=== PATIENT | female | born 1985 | race Caucasian/White ===

== ENCOUNTER 2017-10-25 02:15 | Inpatient (IN) | payer MEDICAID, SELFPAY ==
[2017-10-25 03:05] VITALS: BMI 43.1
[2017-10-25 03:39] LABS: Hematocrit 34.3 % (37-47); Hemoglobin 11.4 g/dl (12.0-15.0); Mean Corp Hgb Conc 33.2 g/gl (32-36); Mean Corpuscular Hgb 32.4 pg (27.0-32.0); Mean Corpuscular Volume 97.4 fL (81-99); Mean Platelet Vol. 10.1 fl (6.2-12.0); Platelet Count 253 K/mm3 (150-450); RBC Distribution Width CV 13.1 % (11.6-14.6); RBC Distribution Width SD 44.5 fl (35.1-43.9); Red Blood Count 3.52 M/mm3 (4.2-5.4); White Blood Count 8.7 K/mm3 (4.4-11.0)
[2017-10-25] MEDS: Lactated Ringers 1,000 ML 50 ML IV ×2 (03:41→04:17)
[2017-10-25 03:47] LABS: Scan Indicated on CBC? Y/N NO
--- NOTE | 2017-10-25 03:47 | PCM.DCVAG ---
Discharge Diet: No Restrictions Discharge Activity: May not drive while taking narcotic pain medications., May Shower, May Take a Tub Bath May resume sexual activity in: 4-6 weeks Additional Activity Instructions:: Nothing in the vagina for 4-6 weeks. You may return to work/school in 6 weeks. Call your doctor if you observe: Fever of 101 or Higher, Inability to urinate, Inability to have a bowel movement, Using more than one pad per hour Additional Instructions: If you experience any of the following, contact your healthcare provider. Bleeding that soaks a pad every hour for 2 hours Unrelieved incision or abdominal pain Swelling, redness, discharge or bleeding from your incision or episiotomy site Your incision begins to separate Problems urinating (including inability to urinate or burning while urinating). Visual changes Severe headache Flu-like symptoms Pain or redness in one of both of your breasts Pain, warmth, tenderness or swelling in your legs, especially the calf area Frequent nausea and vomiting Symptoms of depression or anxiety If you experience any of the following, call 911 or go to the nearest Emergency Room. Chest pain Problems breathing Seizure activity Partial or complete paralysis of a body part, slurred speech, weakness or drooping of the face, or a sudden inability to walk or hold your balance Allergies/Adverse Reactions: Allergies No Known Allergies Allergy (Verified 10/25/17 03:06) Medications to take at Discharge Prenatabs FA 1 tab PO DAILY 10/04/13 Please Follow Up With: Shireen Han MD - [phone] When: Call to make an appointment with your doctor in 6 weeks. Primary Care Physician: Care Physician,No Primary [Primary Care Provider] -
--- NOTE | 2017-10-25 04:12 | DCINST_ITS ---
Discharge Diet: No Restrictions Discharge Activity: May not drive while taking narcotic pain medications., May Shower, May Take a Tub Bath May resume sexual activity in: 4-6 weeks Additional Activity Instructions:: Nothing in the vagina for 4-6 weeks. You may return to work/school in 6 weeks. Call your doctor if you observe: Fever of 101 or Higher, Inability to urinate, Inability to have a bowel movement, Using more than one pad per hour Additional Instructions: If you experience any of the following, contact your healthcare provider. * Bleeding that soaks a pad every hour for 2 hours * Unrelieved incision or abdominal pain * Swelling, redness, discharge or bleeding from your incision or episiotomy site * Your incision begins to separate * Problems urinating (including inability to urinate or burning while urinating) . * Visual changes * Severe headache * Flu-like symptoms * Pain or redness in one of both of your breasts * Pain, warmth, tenderness or swelling in your legs, especially the calf area * Frequent nausea and vomiting * Symptoms of depression or anxiety If you experience any of the following, call 911 or go to the nearest Emergency Room. * Chest pain * Problems breathing * Seizure activity * Partial or complete paralysis of a body part, slurred speech, weakness or drooping of the face, or a sudden inability to walk or hold your balance Allergies/Adverse Reactions: Allergies No Known Allergies Allergy (Verified 10/25/17 03:06) Medications to take at Discharge Prenatabs FA 1 tab PO DAILY 10/04/13 Please Follow Up With: Shireen Han MD - [phone] When: Call to make an appointment with your doctor in 6 weeks. Primary Care Physician: Care Physician,No Primary [Primary Care Provider] -
[2017-10-25] MEDS: Ondansetron 4 MG/2 ML Vial IV (04:42)
[2017-10-25] MEDS: Oxytocin 30 units/NS 500 ml 30 UNITS/500 ML IV.SOLN 334 UNITS IV (07:00)
--- NOTE | 2017-10-25 07:07 | PCM.OB.VAG ---
Vaginal Delivery Maternal Presentation: Active Labor Amniotic Membrane Rupture Type: Artificial Amniotic Fluid Description: Clear Final JESSICA: 10/23/17 Final JESSICA Source: US <20 weeks Gestational age: 40 Weeks and 2 Days Date of Procedure: 10/25/17 Pre-Operative Diagnosis: Intrauterine Post-Operative Diagnosis: Intrauterine Surgery/ Procedure Performed: Spontaneous Vaginal Delivery Type of Anesthesia: Epidural Description of Procedure: Spontaneous vaginal delivery of a viable male infant with Apgars of 8/9 over an intact perineum. Placenta was 3 vessels and normal. No episiotomy or lacerations. Sponge counts okay. Delivery physician: Justyn Lucas MD. Presentation: Vertex Placental Delivery Description: Spontaneous Placenta Disposition: [facility] Cord Vessel Description: 3 Vessels Cord Gases drawn per routine: ABG Cord Entanglement: None Estimated Blood Loss: 250 cc Infant A gender: Male (1 minute): 8 (5 minute): 9 Episiotomy Description: None Laceration: None Medications given after delivery: IV Pitocin Complications: None
[2017-10-25] MEDS: Oxytocin 30 units/NS 500 ml 30 UNITS/500 ML IV.SOLN 167 UNITS IV (07:30)
[2017-10-25] MEDS: Ibuprofen 600 MG Tablet PO ×2 (10:46→21:44)
[2017-10-25 12:05] VITALS: BP 109/59; PULSE 81; RESP 20; TEMP 36.6; O2SAT 96
[2017-10-25] MEDS: Acetaminophen 500 MG Tablet 1000 MG PO (15:54)
[2017-10-25 16:30] VITALS: BP 119/57; PULSE 65; RESP 16; TEMP 36.8
[2017-10-25] MEDS: oxyCODONE 5 MG Tablet PO (16:51)
[2017-10-25 19:38] VITALS: BP 126/60; PULSE 71; RESP 18; TEMP 36.7
[2017-10-26] VITALS: BP 117/59; PULSE 70; RESP 18; TEMP 36.4
[2017-10-26 04:25] VITALS: BP 136/64; PULSE 72; RESP 18; TEMP 35.9
[2017-10-26] MEDS: oxyCODONE 5 MG Tablet PO ×3 (04:30→22:51)
--- NOTE | 2017-10-26 07:49 | PCM.PN.OB ---
Subjective: PPD#1 Doing well. Severe cramping with nursing and is taking Oxycodone for this, up to 10 mg dose. Baby nursing well. Bleeding as a period. No concerns voiced otherwise. - Physical Exam General: Alert, Oriented x3, Cooperative, No apparent distress HEENT: Atraumatic Neck: Supple Abdomen: Soft - Fundus firm NT at 1-2 cm inferior to umbilicus Neurological: Cranial nerves II-XII grossly intact Psych/Mental Status: Normal Affect Vital Signs Temp Pulse Resp BP Pulse Ox 96.6 F L 72 18 136/64 H 96 10/26/17 04:25 10/26/17 04:25 10/26/17 04:25 10/26/17 04:25 10/25/17 12:05 Oxygen Delivery Method Room Air Weight: 107 kg Body Mass Index (BMI) 43.1 Intake and Output for Last 24 Hours 10/24/17 10/25/17 10/26/17 23:59 23:59 23:59 Output Total 950 / 950 Balance -950 / -950 Assessment/Plan PPD#1 Stable pp. Wean off Oxycodone as able. Encourage Tylenol and either Aleve or Ibuprofen prn. Continue care.
[2017-10-26] MEDS: Ibuprofen 600 MG Tablet PO ×2 (08:06→18:38)
[2017-10-26 08:11] VITALS: BP 108/59; PULSE 67; RESP 16; TEMP 36.6; O2SAT 98
[2017-10-26 13:18] VITALS: BP 109/56; PULSE 64; RESP 16; TEMP 36.4
[2017-10-26 14:54] VITALS: BP 120/64; PULSE 59; RESP 20; TEMP 36.2; O2SAT 96
[2017-10-26 20:10] VITALS: BP 116/60; PULSE 65; RESP 16; TEMP 36.5
[2017-10-26] MEDS: Senna/Docusate Sodium 1 Tablet PO (22:56)
[2017-10-27] MEDS: Ibuprofen 600 MG Tablet PO (02:20)
[2017-10-27 02:21] VITALS: BP 113/56; PULSE 68; RESP 16; TEMP 36.4
[2017-10-27 07:30] VITALS: BP 127/71; PULSE 65; RESP 16; TEMP 35.9; O2SAT 96
[2017-10-27] MEDS: oxyCODONE 5 MG Tablet PO (07:31)
--- NOTE | 2017-10-27 07:34 | PCM.PROGNOTE ---
Subjective: PPD#2 Doing well. Painful with nursing. Milk has started to come in. - Physical Exam General: Alert, Oriented x3, Cooperative, No apparent distress HEENT: Atraumatic Neck: Supple Abdomen: Soft - fundus firm NT at 3 cm inferior to umbilicus Psych/Mental Status: Normal Affect Vital Signs Temp Pulse Resp BP Pulse Ox 97.5 F L 68 16 113/56 L 96 10/27/17 02:21 10/27/17 02:21 10/27/17 02:21 10/27/17 02:21 10/26/17 14:54 Oxygen Delivery Method Room Air Weight: 107 kg Body Mass Index (BMI) 43.1 Intake and Output for Last 24 Hours 10/25/17 10/26/17 10/27/17 23:59 23:59 23:59 Output Total 950 / 950 Balance -950 / -950 Assessment/Plan PPD#2 Stable pp. dischg home today. RTO in 6 wk for check.
== END 2017-10-27 11:05 | disposition home or self-care (01) | DRG 373 ==
PROVIDERS: Admitting Provider Obstetrics & Gynecology; Visit Provider Obstetrics & Gynecology
DX: O48.0 Post-term pregnancy (principal); Z37.0 Single live birth; Z3A.40 40 weeks gestation of pregnancy; Z87.891 Personal history of nicotine dependence
CPT/HCPCS: 59025; 59050; 85027; 86850; 86900; 99218; J7120; G0378; J2405

== ENCOUNTER → 2021-09-04 | Outpatient (CLI) | payer MEDICAID, SELFPAY ==
[2021-09-09 15:21] LABS: HPV APTIMA, High Risk Negative (Negative)
== END | disposition home or self-care (01) ==
LOC: LABSPEC 12:28
PROVIDERS: Visit Provider Student in an Organized Health Care Education/Training Program
DX: Z12.4 Encounter for screening for malignant neoplasm of cervix (principal)
CPT/HCPCS: 87624; 88175; G0145

== ENCOUNTER 2023-01-06 22:03 | Emergency (ER) | payer OTHER, MEDICAID, SELFPAY ==
[2023-01-06 22:04] VITALS: BP 149/92; PULSE 82; RESP 20; TEMP 37.6; O2SAT 97; BMI 39.9
--- NOTE | 2023-01-06 22:47 | EDS_ITS ---
HPI History of Present Illness Chief Complaint: Allergic Reaction Narrative Narrative: Patient is a 37-year-old female with no significant past medical history who states she awoke this morning with a pruritic rash across her abdomen and chest. She states that there has been no known new exposures and she reports no one else at home has the rash. She states as a day progressed so to the rash moving to her back arms legs and face. She states that the rash is very pruritic in nature. She states she has tried [id number] medication without any symptom improvement. She denies difficulty breathing or swallowing but based on the progressive nature of the rash comes in for evaluation [facility] Medical History no medical history Home Medications Prenatabs FA 1 tab PO DAILY nutrition 10/04/13 [History Last Taken 04/25/16 1] famotidine 20 mg tablet (Pepcid) 20 mg PO BID #30 tabs 01/06/23 [Rx Last Taken Unknown] prednisone 10 mg tablet 10 mg PO DAILY 15 days #15 tabs 01/06/23 [Rx Last Taken Unknown] Allergy/AdvReac Type Severity Reaction Status Date / Time No Known Allergies Allergy Verified 01/06/23 22:05 Social History Smoking Status: Never smoker [facility] ED Constitutional Constitutional ED: Denies chills or fever(s) ENT ENT ED: Denies sore throat Cardiovascular Cardiovascular: Denies chest pain Respiratory/Chest Respiratory/Chest: Denies cough or dyspnea Gastrointestinal Gastrointestinal: Denies abdominal pain, diarrhea, nausea or vomiting Genitourinary Genitourinary ED: Denies dysuria Musculoskeletal Musculoskeletal: Denies myalgias Integumentary Reports rash Neurologic Neurologic: Denies headache(s) Hematologic/Lymphatic Hematologic/Lymphatic: Denies easy bleeding or easy bruising EXAM Physical Exam Const Vital Signs: 01/06/23 22:04 01/06/23 23:22 Temperature 99.6 F H Temperature Source Temporal Pulse Rate 82 Respiratory Rate 20 H 16 Blood Pressure 149/92 H Blood Pressure Mean 111 Pulse Ox 97 100 Oxygen Delivery Method Room Air Positive well nourished, well developed and obese General Appearance ED: well developed Nutritional Appearance: obese HEENT Reports moist mucous membranes HEENT Narrative: No tongue or lip swelling no oral lesions no airway edema or compromise Eyes PERRL and EOMs intact bilaterally Neck supple Resp normal respiratory effort and clear to auscultation bilaterally Cardio regular rate and regular rhythm Extremity normal to inspection Neuro oriented x3 and CN's II-XII intact bilaterally Sensorium / Orientation: alert Psych mental status grossly normal Skin Skin Narrative: Patient has erythematous urticarial blanchable rash that extends from the abdomen chest back face arms and legs without involvement of the palms or soles. No vesicular or pustule lesions noted. MDM MDM MDM Narrative Medical decision making narrative: Patient presented to the ER mildly hypertensive but otherwise with stable vitals. She reported the rash has been present for over 12 hours and she has no signs of respiratory distress. There is no involvement of the palms or soles to suggest infectious process. Therefore at this time based on the prolonged nature of the rash without respiratory distress there is no need for emergent epinephrine. As the physical exam does not suggest this is an infectious rash but more of an inflammatory/allergic patient will be simply treated with steroids Benadryl and Pepcid. As she remains in no acute respiratory distress and concern for anaphylaxis is low she is otherwise safe for discharge. History & Record Review Discussion w/independent historian: Patient Discharge Plan Triage Chief Complaint: Allergic Reaction ED Provider: Alex Moreno Dx/Rx/DC Orders Clinical Impression: Acute allergic reaction, Urticaria Instructions: ED Hives (Adult) Prescriptions: New prednisone 10 mg tablet 10 mg PO DAILY 15 Days Qty: 15 0RF Rx Instructions: 50 mg p.o. daily ?3 days, 40 mg p.o. daily ?3 days, 30 mg p.o. daily ?3 days, 20 mg p.o. daily ?3 days, 10 mg p.o. daily ?3 days. famotidine [Pepcid] 20 mg tablet 20 mg PO BID Qty: 30 0RF No Action Prenatabs FA 1 tab PO DAILY Primary Care Provider: Yanet Saxena NP Referrals: Yanet Saxena DRYING FRAME OPERATOR, DRYING FRAME OPERATOR-C [Primary Care Provider] - Activity Restrictions/Additional Instructions: Your exam indicates an acute allergic reaction. Take [id number] Benadryl up to 3 times a day on top of the prescribed Pepcid and prednisone to control your allergic reaction rash. If you have any difficulty breathing or swallowing please return for repeat evaluation Disposition Disposition: Home, Self Care
[2023-01-06] MEDS: Triamcinolone Acetonide 40 MG/ML Vial 80 MG IM (23:14)
[2023-01-06] MEDS: Famotidine 20 MG Tablet 40 MG PO (23:14)
[2023-01-06] MEDS: DiphenhydrAMINE 50 MG/ML Syringe IM (23:14)
[2023-01-06 23:22] VITALS: RESP 16; O2SAT 100
== END 2023-01-06 23:54 | disposition home or self-care (01) ==
PROVIDERS: Emergency Provider Emergency Medicine; PCP Nurse Practitioner Family; Visit Provider Emergency Medicine
DX: T78.40XA Allergy, unspecified, initial encounter (principal); L50.9 Urticaria, unspecified; Z79.52 Long term (current) use of systemic steroids
CPT/HCPCS: 96372; 99283